=== PATIENT | male | born 1990 | race Caucasian/White ===

== ENCOUNTER 2022-08-16 15:46 | Emergency (ER) | payer MEDICAID ==
[~2022-08-16] VITALS: Ht 175.3 cm; Wt 99.8 kg
[2022-08-16 15:50] VITALS: BP_SYST 119
--- NOTE | 2022-08-16 15:55 | NUR ---
Patient triaged and placed in waiting room. VSS and patient appears in no acute distress at this time. Accompanied by FAMILY, awaiting available bed, and MD notified of need for MSE.
--- NOTE | 2022-08-16 17:10 | NUR ---
PT STATES HIS ABSCESS TO RIGHT INNER THIGH IS HEALED AND NO PAIN. PT STATES HE ONLY IS HERE TO GET A NOTE FOR WORK, MISSED WORK TODAY.
--- NOTE | 2022-08-16 17:43 | NUR ---
DR HAMILTON EVALUATING PT IN TRIAGE ROOM
[2022-08-16] MEDS ORDERED: BACEYEO OP (18:09)
--- NOTE | 2022-08-16 18:22 | NUR ---
VS stable. discharge papers given. All questions answered. Given rx of bacitracin DC home. ambulatory w steady gait. respirations non labored.
--- NOTE | 2022-08-16 18:25 | NUR ---
Patient given written and verbal discharge instructions and verbalizes understanding. ER MD discussed with patient the results and treatment provided. Patient in stable condition. ID arm band removed. Rx of BACITRACIN EYE given. Patient educated on pain management and to follow up with PMD. Pain Scale 0/10. Opportunity for questions provided and answered. Medication side effect fact sheet provided.
== END 2022-08-16 18:25 | disposition home or self-care (01) ==
LOC: SED 15:46
DX: Z48.00 Encounter for change or removal of nonsurgical wound dressing (principal); Z79.899 Other long term (current) drug therapy
CPT/HCPCS: 99282